=== PATIENT | female | born 1965 | race Caucasian/White ===

== ENCOUNTER 2019-12-13 21:06 | Emergency (ER) | payer MEDICARE, MEDICAID ==
[2019-12-13] MEDS ORDERED: Lidocaine 1% (PF) 30 ML VIAL ONE (21:50)
[2019-12-13] MEDS ORDERED: Boostrix 0.5 ML VIAL ONE (21:51)
[2019-12-13 22:00] LABS: #Eosinphils 0.2 thou/uL (0.0-0.7); #Lymphocytes 1.4 thou/uL (1.20-3.40); #Monocytes 0.3 thou/uL (0.11-0.59); #Neutrophils 3.5 thou/uL (1.40-6.50); %Basophils 0.6 % (0.0-1.0); %Lymphocytes 25.2 % (21.0-51.0); %Monocytes 5.5 % (0.0-10.0); %Neutrophils 65.7 % (42.0-75.0); Hemoglobin 11.6 g/dL (12.0-16.0); Mean Corpuscular HGB CONC 32.1 g/dL (32.0-36.0); Mean Corpuscular Volume 84.3 fL (78.0-98.0); Mean Platelet Volume 7.7 fL (7.4-10.4); Platelet Count 274 thou/uL (130-400); RBC Distribution Width 14.2 % (11.5-14.5); Red Blood Cell (RBC) Count 4.29 mill/uL (4.20-5.40); White Blood Cell (WBC) Count 5.4 thou/uL (4.8-10.8)
[2019-12-13 22:22] LABS: ALT (SGPT) 21 U/L (8-55); AST (SGOT) 21 U/L (5-34); Albumin 4.2 g/dL (3.5-5.0); Alkaline Phosphatase 133 U/L (40-110); Anion Gap 13 mmol/L (10-20); BUN (Urea Nitrogen) 33 mg/dL (9.8-20.1); Bilirubin, Total Less than 0.2 mg/dL (0.2-1.2); Calc. Creatinine Clearance 0 mL/min (70-130); Calcium 8.9 mg/dL (7.8-10.44); Carbon Dioxide 28 mmol/L (22-29); Chloride 103 mmol/L (98-107); Estimated GFR-MDRD 44; Globulin 3.6 g/dL (2.4-3.5); Glucose 101 mg/dL (70-105); Potassium 4.4 mmol/L (3.5-5.1); Protein, Total 7.8 g/dL (6.0-8.3); Sodium 140 mmol/L (136-145)
--- NOTE | 2019-12-14 07:20 | CT ---
CT OF BRAIN PERFORMED WITHOUT CONTRAST ENHANCEMENT: Date: 12/13/2019 HISTORY: Head injury status post fall. COMPARISON: MRI examination of 04/21/2003. FINDINGS: Intracranial calcifications, predominantly periventricular in location, are again identified. There a re no signs of hemorrhage or mass effect. Mastoid air cells and visualized sinuses are clear. IMPRESSION: 1. Periventricular calcifications. This can have several causes, one which can be tuberous sclerosis . 2. No acute intracranial abnormalities. POS: CANDE
--- NOTE | 2019-12-14 07:24 | CT ---
CT OF CERVICAL SPINE PERFORMED WITHOUT CONTRAST ENHANCEMENT: HISTORY: Neck injury. FINDINGS: Vertebral bodies are normal in height. Degenerative change is seen along the course of the spine. M ild disk narrowing at C3-4, C4-5, and C5-6. Facets are in normal alignment. There is no evidence of central canal stenosis. Some vacuum disk material is seen in the right foramen at C3-4. There is r ight-sided foraminal narrowing at C5-6. There is no CT evidence of fracture. The lung apices are cl ear. IMPRESSION: No CT evidence of fracture of the cervical spine. POS: CANDE
== END 2019-12-14 00:43 | disposition home or self-care (01) ==
LOC: ERS 21:06
DX: S01.01XA Laceration without foreign body of scalp, initial encounter (principal); E78.00 Pure hypercholesterolemia, unspecified; W18.30XA Fall on same level, unspecified, initial encounter
CPT/HCPCS: 12001; 36415; 70450; 72125; 80053; 85025; 90471; 90715; 93005; J2001

== ENCOUNTER 2021-07-23 06:53 | Day surgery (SDC) | payer MEDICARE, MEDICAID ==
[2021-07-22 11:22] VITALS: BMI 19.0
[2021-07-23] MEDS ORDERED: Ketamine 50 MG/ML (10ML VIAL) ONE (08:32)
== END 2021-07-23 10:15 | disposition home or self-care (01) ==
LOC: SDC 06:53
PROVIDERS: ATTEND Internal Medicine
PROC: 0DBL8ZX Excision of Transverse Colon, Via Natural or Artificial Opening Endoscopic, Diagnostic (ICD-10-PCS; principal; 2021-07-23)
DX: Z12.11 Encounter for screening for malignant neoplasm of colon (principal); D12.3 Benign neoplasm of transverse colon; Q43.8 Other specified congenital malformations of intestine; K63.89 Other specified diseases of intestine; K59.09 Other constipation; F84.0 Autistic disorder; F73 Profound intellectual disabilities; J45.909 Unspecified asthma, uncomplicated; M81.0 Age-related osteoporosis without current pathological fracture; Z86.010 Personal history of colon polyps; Z79.2 Long term (current) use of antibiotics; Z79.899 Other long term (current) drug therapy; Z79.83 Long term (current) use of bisphosphonates; Z88.2 Allergy status to sulfonamides
CPT/HCPCS: 88305